=== PATIENT | male | born 1995 ===

== ENCOUNTER → 2016-06-23 | Outpatient (CLI) | payer BC, OTHER | END | disposition home or self-care (01) | LOC: C.RDSM 07:53 | PROVIDERS: ATTEND Physical Medicine & Rehabilitation Sports Medicine | DX: S69.91XA Unspecified injury of right wrist, hand and finger(s), initial encounter (principal); X58.XXXA Exposure to other specified factors, initial encounter ==

== ENCOUNTER → 2016-06-30 | Outpatient (CLI) | payer BC, OTHER | END | disposition home or self-care (01) | LOC: C.RDSM 13:20 | PROVIDERS: ATTEND Physical Medicine & Rehabilitation Sports Medicine | DX: M79.641 Pain in right hand (principal) ==

== ENCOUNTER → 2016-07-19 | Outpatient (CLI) | payer BC, OTHER | END | disposition home or self-care (01) | LOC: C.RDSM 08:00 | PROVIDERS: ATTEND Physical Medicine & Rehabilitation Sports Medicine | DX: S62.392A Other fracture of third metacarpal bone, right hand, initial encounter for closed fracture (principal); X58.XXXA Exposure to other specified factors, initial encounter ==